=== PATIENT | male | born 1960 | race Caucasian/White ===

== ENCOUNTER 2021-11-17 15:56 | Emergency (ER) | payer SELFPAY ==
[2021-11-17] MEDS ORDERED: Ketorolac 60 MG/2 ML SDV IM ONE (16:28)
[2021-11-17] MEDS ORDERED: Cyclobenzaprine 10 MG Tab PO ONE (16:29)
[2021-11-17] MEDS ORDERED: traMADol 50 MG Tab PO ONE (19:11)
== END 2021-11-17 19:26 | disposition home or self-care (01) ==
LOC: JD.ED 15:56
DX: M54.50 Low back pain, unspecified (principal); K59.00 Constipation, unspecified; Z88.0 Allergy status to penicillin; Z88.1 Allergy status to other antibiotic agents
CPT/HCPCS: 74018; 96372; 99283; A9270; J1885